=== PATIENT | female | born 2000 | race Caucasian/White ===

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

== ENCOUNTER 2020-12-18 22:35 | Emergency (ER) | payer SELFPAY ==
[~2020-12-18] VITALS: Ht 175.3 cm; Wt 68.2 kg
[2020-12-18 23:01] LABS: CLARITY,URINE CLOUDY (Clear); COLOR,URINE YELLOW (Yellow); GLUCOSE, URINE NEGATIVE (Neg); KETONES,URINE NEGATIVE (Neg); LEUKOCYTE ESTERASE ,URINE SMALL (Neg); NITRITES, URINE NEGATIVE (Neg); OCCULT BLOOD,URINE NEGATIVE (Neg); PROTEIN,URINE TRACE mg/dl (Neg)
[2020-12-18 23:04] LABS: URINE HCG NEGATIVE (NEG)
[2020-12-18 23:05] LABS: UA COLLECTION TYPE CLN CATCH MIDSTREAM
[2020-12-18 23:11] LABS: RBC,URINE NONE SEEN /HPF (0-2); WBC,URINE 30-50 /HPF (0-4)
[2020-12-18 23:12] LABS: BACTERIA,URINE FEW /HPF (Neg); MUCUS STRANDS NONE SEEN /LPF (Neg); SQUAMOUS EPITHELIAL CELL,UR MANY /LPF (FEW)
[2020-12-18 23:13] LABS: CAL OXALATE CRYSTALS 3+ /HPF (NEGATIVE)
[2020-12-18] MEDS ORDERED: CefTRIAXone 1000mg IM Kit (w/lidocaine diluent) IM STA (23:19)
[2020-12-18] MEDS ORDERED: DOXYCYCLINE 100MG CAPSULE PO ONE (23:20)
[2020-12-18] MEDS ORDERED: DOXY100C43 PO (23:23)
[2020-12-19] VITALS: BP 120/76
== END 2020-12-19 00:01 | disposition home or self-care (01) ==
LOC: ER 22:36
DX: N39.0 Urinary tract infection, site not specified (principal); Z20.2 Contact with and (suspected) exposure to infections with a predominantly sexual mode of transmission; R30.9 Painful micturition, unspecified; R10.30 Lower abdominal pain, unspecified; J45.909 Unspecified asthma, uncomplicated; F41.9 Anxiety disorder, unspecified; F12.90 Cannabis use, unspecified, uncomplicated; Z90.49 Acquired absence of other specified parts of digestive tract; Z72.89 Other problems related to lifestyle; Z79.2 Long term (current) use of antibiotics
CPT/HCPCS: 36415; 81001; 81025; 87491; 87591; 96372; 99283; J0696

== ENCOUNTER 2022-07-03 00:19 | Emergency (ER) | payer SELFPAY ==
[~2022-07-03] VITALS: Ht 175.3 cm; Wt 59.1 kg
[2022-07-03 00:41] VITALS: BP 123/78
[2022-07-03] MEDS ORDERED: ondansetron 4mg rapidly disintigrating tab PO ONE (00:50)
[2022-07-03] MEDS ORDERED: amox tr/potassium clavulanate 875/125mg TAB PO ONE (00:50)
[2022-07-03] MEDS ORDERED: AMOX-115 PO (00:53)
== END 2022-07-03 01:08 | disposition home or self-care (01) ==
LOC: ER 00:20
DX: H60.502 Unspecified acute noninfective otitis externa, left ear (principal); H65.92 Unspecified nonsuppurative otitis media, left ear; F12.10 Cannabis abuse, uncomplicated; F41.9 Anxiety disorder, unspecified; J45.909 Unspecified asthma, uncomplicated; Z87.19 Personal history of other diseases of the digestive system
CPT/HCPCS: 99283

== ENCOUNTER 2022-08-18 14:46 | Emergency (ER) | payer SELFPAY | END 2022-08-18 16:24 | disposition left against medical advice (07) | LOC: ER 14:46 | DX: R10.84 Generalized abdominal pain (principal); Z53.21 Procedure and treatment not carried out due to patient leaving prior to being seen by health care provider ==

== ENCOUNTER 2023-03-01 06:42 | Emergency (ER) | payer MEDICAID ==
[~2023-03-01] VITALS: Ht 175.3 cm; Wt 66.2 kg
[2023-03-01 06:44] VITALS: BP 120/79
[2023-03-01] MEDS ORDERED: CYCL-394 PO (07:19)
== END 2023-03-01 07:28 | disposition home or self-care (01) ==
LOC: ER 06:42
DX: M62.838 Other muscle spasm (principal); M54.2 Cervicalgia; K59.00 Constipation, unspecified; J45.909 Unspecified asthma, uncomplicated; F41.9 Anxiety disorder, unspecified; F12.90 Cannabis use, unspecified, uncomplicated; Z90.49 Acquired absence of other specified parts of digestive tract; Z72.89 Other problems related to lifestyle; Z79.899 Other long term (current) drug therapy
CPT/HCPCS: 99283

== ENCOUNTER 2023-03-11 01:49 | Emergency (ER) | payer MEDICAID ==
[~2023-03-11] VITALS: Ht 175.3 cm; Wt 59.1 kg
[2023-03-11] MEDS ORDERED: ACET-1025 PO (02:05)
[2023-03-11] MEDS ORDERED: acetaminophen 325mg tablet PO ONE (02:05)
[2023-03-11] MEDS ORDERED: ibuprofen tablet 400 MG TABLET PO ONE (02:05)
[2023-03-11] MEDS ORDERED: IBUP-1984 PO (02:05)
[2023-03-11 02:16] VITALS: BP 132/90
--- NOTE | 2023-03-11 02:21 | NUR ---
400MG MOTRIN GIVEN. MEDICATION NOT SCORED, UNABLE TO BREAK IN HALF
== END 2023-03-11 02:21 | disposition home or self-care (01) ==
LOC: ER 01:49
DX: M54.2 Cervicalgia (principal); J45.909 Unspecified asthma, uncomplicated; F12.90 Cannabis use, unspecified, uncomplicated; Z90.49 Acquired absence of other specified parts of digestive tract
CPT/HCPCS: 99283

== ENCOUNTER 2024-05-23 17:51 | Emergency (ER) | payer OTHER, MEDICAID ==
[~2024-05-23] VITALS: Ht 170.2 cm; Wt 71.8 kg
[2024-05-23 17:52] VITALS: BP 137/91; PULSE 113; RESP 16; TEMP 98; O2SAT 98
[2024-05-23] MEDS ORDERED: ketorolac trometh. 30mg/ml inj. IV ONE (18:05)
[2024-05-23] MEDS ORDERED: ketorolac tromethamine 15mg/ml inj. IV ONE (18:10)
[2024-05-23] MEDS: dexamethasone sod phosphate 10mg/ml inj IM STA (19:18)
[2024-05-23] MEDS: ketorolac tromethamine 15mg/ml inj. IM ONE (19:18)
[2024-05-23] MEDS ORDERED: CYCL-1 PO (19:27)
[2024-05-23] MEDS ORDERED: LIDO700A32 TOP (19:27)
== END 2024-05-23 19:38 | disposition home or self-care (01) ==
LOC: ER 17:52
DX: S16.1XXA Strain of muscle, fascia and tendon at neck level, initial encounter (principal); M48.12 Ankylosing hyperostosis [Forestier], cervical region; F12.90 Cannabis use, unspecified, uncomplicated; J45.909 Unspecified asthma, uncomplicated; Z90.49 Acquired absence of other specified parts of digestive tract; V89.2XXA Person injured in unspecified motor-vehicle accident, traffic, initial encounter; Y93.89 Activity, other specified; Y92.89 Other specified places as the place of occurrence of the external cause; Y99.8 Other external cause status
CPT/HCPCS: 72050; 96372; 99284; J1100; J1885

== ENCOUNTER 2024-07-24 04:26 | Emergency (ER) | payer MEDICAID ==
[~2024-07-24] VITALS: Ht 170.2 cm; Wt 69.2 kg
[~2024-07-24 04:26] MED LIST changes: -BISA-155 PO; +CYCL-1 PO; -DIPH25CA83 PO; -HYDR-3965 PO; +LIDO700A32 TOP; -ONDA8TAB6 PO
[2024-07-24 05:29] VITALS: TEMP 98.6
[2024-07-24 06:31] VITALS: BP 116/82; PULSE 108; RESP 17; O2SAT 97
== END 2024-07-24 06:40 | disposition home or self-care (01) ==
LOC: ER 04:27
DX: S16.1XXA Strain of muscle, fascia and tendon at neck level, initial encounter (principal); R04.0 Epistaxis; I10 Essential (primary) hypertension; J45.909 Unspecified asthma, uncomplicated; F41.9 Anxiety disorder, unspecified; F12.90 Cannabis use, unspecified, uncomplicated; Z79.899 Other long term (current) drug therapy; Z90.49 Acquired absence of other specified parts of digestive tract; X58.XXXA Exposure to other specified factors, initial encounter; Y93.89 Activity, other specified; Y92.89 Other specified places as the place of occurrence of the external cause; Y99.8 Other external cause status
CPT/HCPCS: 99281